=== PATIENT | female | born 1950 ===

== ENCOUNTER → 2018-02-25 | Outpatient (CLI) | payer BC ==
--- NOTE | 2018-02-25 10:01 | RADIOLOGY IMAGING REPORT ---
FACILITY: [facility] [place] PATIENT NAME: Annabelle Engle : 1950 MR: [id number] V: [id number] EXAM DATE: ORDERING PHYSICIAN: MOI FUENTES TECHNOLOGIST: Location: [facility] Patient: Annabelle Engle : 1950 Visit/Account:[id number] Date of Sevice: 02/25/2018 KNEE 3 VIEW RIGHT Indication: Chronic pain Comparison: None available Findings: No evidence of fracture, dislocation, or acute osseous abnormality of the right knee. There is moderate to severe medial femoral tibial joint space narrowing. Large osteophytes are noted off the medial condyle and medial plateau. The lateral compartment is well preserved. Moderate deg enerative changes seen within the patellofemoral joint space with moderate-sized osteophytes present. No significant joint effusion is identified There is no focal soft tissue abnormality. No evidence of radiopaque foreign body. IMPRESSION: 1. 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
== END ==
LOC: RAD 09:07
PROVIDERS: ATTEND Family Medicine
DX: M17.11 Unilateral primary osteoarthritis, right knee (principal)